=== PATIENT | female | born 1960 | race Caucasian/White ===

== ENCOUNTER → 2023-05-24 13:48 | Outpatient (REF) | payer OTHER, SELFPAY | LOC: RAD 13:48 | PROVIDERS: ATTENDING PHYSICIAN Internal Medicine; FAMILY PHYSICIAN Family Medicine | DX: Z78.0 Asymptomatic menopausal state (principal) | CPT/HCPCS: 77080 ==

== ENCOUNTER → 2023-08-10 08:36 | Outpatient (REF) | payer OTHER, SELFPAY ==
[2023-08-10 10:13] LABS: ALT (SGPT) 29 U/L (0-35); AST (SGOT) 27 U/L (14-36); Albumin 4.6 g/dl (3.5-5.0); Alkaline Phosphatase 67 U/L (38-126); Blood Urea Nitrogen 21 mg/dl (7-17); Calcium 10.1 mg/dl (8.4-10.2); Carbon Dioxide 27 mmol/L (22-30); Chloride 103 mmol/L (98-107); Glucose 97 mg/dl (70-99); HDL Cholesterol 51 mg/dl; LDL Cholesterol, Calculated 107 mg/dl; Potassium 4.1 mmol/L (3.5-5.1); Sodium 138 mmol/L (135-145); Total Bilirubin 0.7 mg/dl (0.2-1.3); Total Cholesterol 187 mg/dl (50-199); Total Protein 7.1 g/dl (6.3-8.2); Triglyceride 147 mg/dl (10-149); Very Low Density Lipoprotein 29 mg/dl (0-30); eGFR > 60.00
[2023-08-10 10:34] LABS: Glycohemoglobin (HgbA1c) 5.8 % (4.0-5.6)
== END ==
LOC: REG 08:36
PROVIDERS: ATTENDING PHYSICIAN Family Medicine
DX: R73.02 Impaired glucose tolerance (oral) (principal); Z13.6 Encounter for screening for cardiovascular disorders
CPT/HCPCS: 36415; 80053; 80061; 83036

== ENCOUNTER → 2023-08-26 16:21 | Outpatient (REF) | payer OTHER, SELFPAY | LOC: WDC 16:21 | PROVIDERS: ATTENDING PHYSICIAN Obstetrics & Gynecology; FAMILY PHYSICIAN Family Medicine | DX: Z12.31 Encounter for screening mammogram for malignant neoplasm of breast (principal) | CPT/HCPCS: 77063; 77067 ==

== ENCOUNTER → 2023-12-03 08:58 | Outpatient (REF) | payer OTHER, SELFPAY | LOC: WDC 08:58 | PROVIDERS: ATTENDING PHYSICIAN Obstetrics & Gynecology; FAMILY PHYSICIAN Family Medicine | DX: R92.2 Inconclusive mammogram (principal) | CPT/HCPCS: 76641 ==

== ENCOUNTER → 2024-02-14 09:09 | Outpatient (REF) | payer OTHER, SELFPAY ==
[2024-02-14 10:10] LABS: % Basophils 0.3 % (0-2); % Eosinophils 0.3 % (0-6); % Immature Granulocytes 0.3 % (0-0.5); % Lymphocytes 37.2 % (20.5-51.1); % Monocytes 5.3 % (1.7-9.3); % Neutrophils 56.6 % (42.2-75.2); Absolute Lymphocytes 3.9 10^3/uL (1.2-3.4); Absolute Monocytes 0.6 10^3/uL (0.1-0.6); Absolute Neutrophils 5.9 10^3/uL (1.4-6.5); Hematocrit 37.9 % (37.0-47.0); Hemoglobin 13.3 g/dL (12.0-16.0); Mean Corp Hgb Conc. 35.1 g/dL (33.0-37.0); Mean Corpuscular Volume 88.3 fL (81.0-99.0); Mean Platelet Volume 11.5 fL (7.4-10.4); Nucleated Red Blood Cells % 0 %; Platelet Count 256 10^3/uL (130-400); Red Blood Cell Count 4.29 10^6/uL (4.20-5.40); Red Cell Dist. Width 12.9 % (11.5-14.5); White Blood Cell Count 10.5 10^3/uL (4.8-10.8)
[2024-02-14 10:55] LABS: ALT (SGPT) 20 U/L (0-35); AST (SGOT) 20 U/L (14-36); Albumin 4.4 g/dl (3.5-5.0); Alkaline Phosphatase 53 U/L (38-126); Blood Urea Nitrogen 30 mg/dl (7-17); Calcium 9.9 mg/dl (8.4-10.2); Carbon Dioxide 28 mmol/L (22-30); Chloride 103 mmol/L (98-107); Glucose 81 mg/dl (70-99); HDL Cholesterol 49 mg/dl; LDL Cholesterol, Calculated 128 mg/dl; Potassium 3.7 mmol/L (3.5-5.1); Sodium 144 mmol/L (135-145); Total Bilirubin 0.3 mg/dl (0.2-1.3); Total Cholesterol 200 mg/dl (50-199); Total Protein 6.8 g/dl (6.3-8.2); Triglyceride 118 mg/dl (10-149); Very Low Density Lipoprotein 23 mg/dl (0-30); eGFR > 60.00
[2024-02-14 11:02] LABS: Vitamin D, 25-OH*** 65.6 ng/mL (30-80)
[2024-02-14 11:16] LABS: TSH Reflex To Free T4 3.77 uIU/ml (0.47-4.68)
[2024-02-14 13:58] LABS: Glycohemoglobin (HgbA1c) 5.4 % (4.0-5.6)
== END ==
LOC: REG 09:09
PROVIDERS: ATTENDING PHYSICIAN Family Medicine
DX: R73.02 Impaired glucose tolerance (oral) (principal); Z13.6 Encounter for screening for cardiovascular disorders; Z13.29 Encounter for screening for other suspected endocrine disorder; M85.852 Other specified disorders of bone density and structure, left thigh; E55.9 Vitamin D deficiency, unspecified; R53.83 Other fatigue
CPT/HCPCS: 36415; 80053; 80061; 82306; 83036; 84443; 85025

== ENCOUNTER → 2024-06-15 09:42 | Outpatient (REF) | payer OTHER, SELFPAY ==
[2024-06-15 13:13] LABS: % Basophils 0.4 % (0-2); % Eosinophils 0.9 % (0-6); % Immature Granulocytes 0.3 % (0-0.5); % Lymphocytes 23.6 % (20.5-51.1); % Monocytes 5.1 % (1.7-9.3); % Neutrophils 69.7 % (42.2-75.2); Absolute Eosinophils 0.1 10^3/uL (0-0.7); Absolute Lymphocytes 1.9 10^3/uL (1.2-3.4); Absolute Monocytes 0.4 10^3/uL (0.1-0.6); Absolute Neutrophils 5.5 10^3/uL (1.4-6.5); Hematocrit 42.4 % (37.0-47.0); Hemoglobin 14.2 g/dL (12.0-16.0); Mean Corp Hgb Conc. 33.5 g/dL (33.0-37.0); Mean Corpuscular Hgb 31.1 pg (27.0-31.0); Mean Corpuscular Volume 92.8 fL (81.0-99.0); Mean Platelet Volume 11.3 fL (7.4-10.4); Nucleated Red Blood Cells % 0 %; Platelet Count 263 10^3/uL (130-400); Red Blood Cell Count 4.57 10^6/uL (4.20-5.40); Red Cell Dist. Width 12.4 % (11.5-14.5); White Blood Cell Count 7.9 10^3/uL (4.8-10.8)
[2024-06-15 13:35] LABS: ALT (SGPT) 32 U/L (0-35); AST (SGOT) 25 U/L (14-36); Albumin 5.2 g/dl (3.5-5.0); Alkaline Phosphatase 73 U/L (38-126); Blood Urea Nitrogen 24 mg/dl (7-17); Calcium 10.2 mg/dl (8.4-10.2); Carbon Dioxide 27 mmol/L (22-30); Chloride 99 mmol/L (98-107); Glucose 128 mg/dl (70-99); Iron 100 ug/dl (37-170); Potassium 3.8 mmol/L (3.5-5.1); Sodium 138 mmol/L (135-145); Total Bilirubin 0.7 mg/dl (0.2-1.3); Total Protein 7.6 g/dl (6.3-8.2); eGFR > 60.00
[2024-06-15 13:45] LABS: IgA 183 mg/dl (70-400)
[2024-06-15 13:52] LABS: Vitamin D, 25-OH*** 66.7 ng/mL (30-80)
[2024-06-15 14:01] LABS: Erythrocyte Sed Rate 9 mm/hour (0-20)
[2024-06-15 14:10] LABS: Ferritin 57.6 ng/ml (11.1-264.0)
[2024-06-17 14:00] LABS: Zinc 96.2 ug/dL (60.0-120.0)
[2024-06-17 17:07] LABS: Transferrin 241 mg/dL (200-360)
[2024-06-17 17:49] LABS: tTG IgA Antibody <1.02 FLU (0.00-4.99)
[2024-06-18 04:22] LABS: ANA, IgG Reflex to HEp-2 None Detected (None Detected)
[2024-06-18 08:26] LABS: Gliadin Peptide (DGP) Ab, IgA <0.72 FLU (0.00-4.99); Gliadin Peptide (DGP) Ab, IgG <0.56 FLU (0.00-4.99)
== END ==
LOC: REG 09:42
PROVIDERS: ATTENDING PHYSICIAN Internal Medicine; FAMILY PHYSICIAN Family Medicine
DX: K58.2 Mixed irritable bowel syndrome (principal)
CPT/HCPCS: 36415; 80053; 82180; 82306; 82728; 82784; 83540; 84425; 84466; 84630; 85025; 85652; 86038; 86258; 86364

== ENCOUNTER → 2024-08-26 08:01 | Outpatient (REF) | payer OTHER, SELFPAY ==
[2024-08-26 09:02] LABS: % Basophils 0.3 % (0-2); % Eosinophils 1.8 % (0-6); % Immature Granulocytes 0.2 % (0-0.5); % Lymphocytes 39.7 % (20.5-51.1); % Monocytes 7.8 % (1.7-9.3); % Neutrophils 50.2 % (42.2-75.2); Absolute Eosinophils 0.1 10^3/uL (0-0.7); Absolute Lymphocytes 2.4 10^3/uL (1.2-3.4); Absolute Monocytes 0.5 10^3/uL (0.1-0.6); Hematocrit 40.2 % (37.0-47.0); Hemoglobin 13.7 g/dL (12.0-16.0); Mean Corp Hgb Conc. 34.1 g/dL (33.0-37.0); Mean Corpuscular Hgb 31.5 pg (27.0-31.0); Mean Corpuscular Volume 92.4 fL (81.0-99.0); Mean Platelet Volume 11.6 fL (7.4-10.4); Nucleated Red Blood Cells % 0 %; Platelet Count 254 10^3/uL (130-400); Red Blood Cell Count 4.35 10^6/uL (4.20-5.40); Red Cell Dist. Width 13.1 % (11.5-14.5)
[2024-08-26 09:40] LABS: ALT (SGPT) 25 U/L (0-35); AST (SGOT) 20 U/L (14-36); Albumin 4.8 g/dl (3.5-5.0); Alkaline Phosphatase 63 U/L (38-126); Blood Urea Nitrogen 24 mg/dl (7-17); Calcium 9.9 mg/dl (8.4-10.2); Carbon Dioxide 30 mmol/L (22-30); Chloride 103 mmol/L (98-107); Glucose 96 mg/dl (70-99); HDL Cholesterol 42 mg/dl; LDL Cholesterol, Calculated 121 mg/dl; Potassium 4.3 mmol/L (3.5-5.1); Sodium 142 mmol/L (135-145); Total Bilirubin 0.8 mg/dl (0.2-1.3); Total Cholesterol 194 mg/dl (50-199); Total Protein 7.1 g/dl (6.3-8.2); Triglyceride 156 mg/dl (10-149); Very Low Density Lipoprotein 31 mg/dl (0-30); eGFR > 60.00
[2024-08-26 10:19] LABS: Glycohemoglobin (HgbA1c) 5.4 % (4.0-5.6)
== END ==
LOC: WDC 08:01
PROVIDERS: ATTENDING PHYSICIAN Obstetrics & Gynecology; FAMILY PHYSICIAN Family Medicine
DX: R73.02 Impaired glucose tolerance (oral) (principal); Z13.6 Encounter for screening for cardiovascular disorders; R53.83 Other fatigue; Z12.31 Encounter for screening mammogram for malignant neoplasm of breast
CPT/HCPCS: 36415; 77063; 77067; 80053; 80061; 83036; 85025

== ENCOUNTER → 2024-09-30 08:46 | Outpatient (REF) | payer OTHER, SELFPAY ==
[2024-09-30 11:00] LABS: ALT (SGPT) 22 U/L (0-35); AST (SGOT) 18 U/L (14-36); HDL Cholesterol 58 mg/dl; LDL Cholesterol, Calculated 169 mg/dl; Total Cholesterol 248 mg/dl (50-199); Triglyceride 109 mg/dl (10-149); Very Low Density Lipoprotein 21 mg/dl (0-30)
== END ==
LOC: REG 08:46
PROVIDERS: ATTENDING PHYSICIAN Internal Medicine Cardiovascular Disease; FAMILY PHYSICIAN Family Medicine
DX: E78.00 Pure hypercholesterolemia, unspecified (principal)
CPT/HCPCS: 36415; 80061; 84450; 84460

== ENCOUNTER → 2025-01-12 09:07 | Outpatient (REF) | payer MEDICARE, OTHER, SELFPAY ==
[2025-01-12 10:55] LABS: ALT (SGPT) 21 U/L (0-35); AST (SGOT) 20 U/L (14-36); Albumin 4.6 g/dl (3.5-5.0); Alkaline Phosphatase 54 U/L (38-126); Blood Urea Nitrogen 21 mg/dl (7-17); Calcium 9.8 mg/dl (8.4-10.2); Carbon Dioxide 29 mmol/L (22-30); Chloride 104 mmol/L (98-107); Glucose 85 mg/dl (70-99); HDL Cholesterol 64 mg/dl; LDL Cholesterol, Calculated 133 mg/dl; Potassium 4.0 mmol/L (3.5-5.1); Sodium 140 mmol/L (135-145); Total Protein 7.2 g/dl (6.3-8.2); Very Low Density Lipoprotein 27 mg/dl (0-30); eGFR > 60.00
[2025-01-12 11:16] LABS: Vitamin D, 25-OH*** 57.8 ng/mL (30-80)
[2025-01-12 11:17] LABS: Hematocrit 43.6 % (37.0-47.0); Hemoglobin 14.7 g/dL (12.0-16.0); Mean Corp Hgb Conc. 33.7 g/dL (33.0-37.0); Mean Corpuscular Volume 93.6 fL (81.0-99.0); Nucleated Red Blood Cells % 0 %; Platelet Count 331 10^3/uL (130-400); Red Cell Dist. Width 13.1 % (11.5-14.5)
[2025-01-12 11:46] LABS: Glycohemoglobin (HgbA1c) 5.3 % (4.0-5.6)
== END ==
LOC: REG 09:07
PROVIDERS: ATTENDING PHYSICIAN Internal Medicine Cardiovascular Disease; FAMILY PHYSICIAN Family Medicine
DX: R73.02 Impaired glucose tolerance (oral) (principal); E78.5 Hyperlipidemia, unspecified; R53.83 Other fatigue; Z13.29 Encounter for screening for other suspected endocrine disorder; E55.9 Vitamin D deficiency, unspecified; E78.00 Pure hypercholesterolemia, unspecified
CPT/HCPCS: 36415; 80053; 80061; 82306; 83036; 84443; 85025

== ENCOUNTER → 2025-01-14 12:58 | Outpatient (REF) | payer MEDICARE, OTHER, SELFPAY | LOC: WDC 12:58 | PROVIDERS: ATTENDING PHYSICIAN Obstetrics & Gynecology; FAMILY PHYSICIAN Family Medicine | DX: R92.333 Mammographic heterogeneous density, bilateral breasts (principal) | CPT/HCPCS: 76641 ==